=== PATIENT | female | born 2005 | race Asian ===

== ENCOUNTER 2024-07-06 14:13 | Outpatient (AMB) | payer OTHER, SELFPAY ==
--- NOTE | 2024-07-06 14:16 | MHC.PC.OV ---
Vital Signs 07/06/24 14:21 Height 5 ft 1.61 in Weight 142 lb 4 oz BMI 26.3 BP 100/62 Blood Pressure Location Rt brachial Position Sitting Respiration 12 Pulse 110 H Pulse Source Pulse Oximeter Temp 98.7 F Temp Source Oral Pulse Oximetry (%) 100 Oxygen Delivery Method Room Air Intake Visit Reasons: est care Intake Note: New patient visit Driver Courier Required: No Allergies No Known Allergies Allergy (Verified 07/06/24 14:16) Tobacco use date assessed: 07/06/24 Dental Screening Dental Screen Date: 07/06/24 Did you have a dental visit in the last 12 months?: No Did you have a dental problem in the last 6 months where you did not have access to dental care?: No Was dental information given to patient?: Patient has dentist HPI est care HPI Details Patient is a 19-year-old female who presents today to establish care and for a physical exam. She denies any significant past medical history. She says that she needed this appointment because she needs titers for school and she needs a physical exam. She got accepted into a [employer] program this summer. She has to have her titers and physical and by 07/13/2024. She states that she has been overall in good health. She tries to eat healthy and remain physically active. Denies any chest pain, shortness on breath, dizziness or weakness. She says that she feels strong. No history of asthma, heart disease, diabetes, anxiety or depression. She goes to school right now full-time at [employer] in [facility] in the premed program. Does not yet follow with gynecology has she is not sexually active. Fam hx: mother has t2dm, htn and father has t2dm, brother is disabled [facility] Family History (Updated 07/06/24 @ 14:32 by Carito Rivero CMA) Mother HTN (hypertension) High cholesterol Diabetes Father Diabetes Social History Housing: House Patient Tobacco Use Status: Never used Tobacco e-Cigarette/Vaping Use: Never Used Second Hand Smoke Exposure: No service: No Current occupational status: employed and student Current occupational exposures/hazards: No Cognitive needs: No Hearing needs: No Vision needs: No Questionnaire PHQ-9 Over the last 2 weeks, how often have you been bothered by any of the following problems? 1. Little interest or pleasure in doing things: not at all 2. Feeling down, depressed, or hopeless: not at all 3. Trouble falling or staying asleep, or sleeping too much: not at all 4. Feeling tired or having little energy: not at all 5. Poor appetite or overeating: not at all 6. Feeling bad about yourself - or that you are a failure or have let yourself or your family down: not at all 7. Trouble concentrating on things, such as reading the newspaper or watching television: not at all 8. Moving or speaking so slowly that other people could have noticed. Or the opposite - being so fidgety or restless that you have been moving around a lot more than usual: not at all 9. Thoughts that you would be better off or of hurting yourself in some way: not at all Total score: 0 Depression Screening Interpretation: Negative Depression Screening Done: Yes 77294 - PHQ-9 Billing: Yes Source: Developed by Drs. Joe Girard, Yuliana Avilez, Yann Sutton and colleagues, with an educational chen from [employer]. Thrive Questionnaire Date Thrive assessed: 07/06/24 I am a: Patient What is your living situation today?: I have a steady place to live Within the past 12 months, did the food you bought not last and you didn't have the money to get more?: Never true Within the past 12 months, did you worry whether your food would run out before you got money to buy more?: Never true Do you have trouble paying for medicines?: I choose not to answer this question Do you have trouble getting transportation to medical appointments?: No Do you have trouble paying your heating and electricity bill?: I choose not to answer this question Do you have trouble taking care of your child, family member or friend?: I choose not to answer this question Do you have trouble with day-to-day activities such as bathing, preparing meals, shopping, managing finances, etc.?: No Are you currently unemployed and looking for a job?: I choose not to answer this question Are you interested in more education?: Yes Please select the resources that you would like help with: None Currently or been in a relationship where the following occur: No concerns reported THRIVE Score: 0 AUDIT C Alcohol Use Questionnaire (AUDIT-C) 1. How often do you have a drink containing alcohol?: Never 3. How often do you have six or more drinks on one occasion?: Never Total Score: 0 SOWMYA-7 AMB Questionnaire SOWMYA-7 Date SOWMYA - 7 assessed: 07/06/24 Feeling nervous, anxious, or on edge: 0 = Not at all Not being able to stop or control worryin = Not at all Worrying too much about different things: 0 = Not at all Trouble relaxin = Several days Being so restless that it is hard to sit still: 0 = Not at all Becoming easily annoyed or irritable: 0 = Not at all Feeling afraid as if something awful might happen: 0 = Not at all Total SOWMYA-7 score (0-4 normal; 5-9 mild; 10-14 moderate; 15-21 severe): 1 Source: Developed by Drs. Joe Girard, Yuliana Avilez, Yann Sutton and colleagues, with an educational chen from [employer]. SOWMYA-7 Assessment Billing SOWMYA-7 Assessment Tool: SOWMYA-7 Assessment 54514 Physical exam (Primary Care) Vital Signs: Last Vital Signs Temp 98.7 F 07/06/24 14:21 Pulse 110 H 07/06/24 14:21 Resp 12 07/06/24 14:21 BP 100/62 07/06/24 14:21 Pulse Ox 100 07/06/24 14:21 Oxygen Delivery Method Room Air 07/06/24 14:21 BMI result Body Mass Index 26.3 Tobacco/Smoking Status: Tobacco use Status Tobacco use date assessed 07/06/24 07/06/24 14:19 Patient Tobacco Use Status Never used Tobacco 07/06/24 14:19 e-Cigarette/Vaping Use Never Used 07/06/24 14:19 PHQ-9: PHQ-9 Score PHQ-9: Total score 0 07/06/24 14:19 Depression Screening Interpretation: Negative Thrive Assessment: Date of Thrive Assessment Date Thrive assessed 07/06/24 07/06/24 14:19 Currently or been in a relationship where the following occur: No concerns reported Const Orientation/consciousness: patient oriented x3 HENMT Ears: hearing grossly normal bilaterally and TM's normal bilaterally General nose exam: No nasal polyps present Face and sinus: Yes sinuses nontender Mouth: Normal oral and palatal mucosa present Eyes Pupils: Equal, round and reactive pupils present EOM: EOMs intact bilaterally Neck Neck: Yes full ROM and Yes no lymphadenopathy Thyroid: Thyroid normal Chest Chest palpation & inspection: normal inspection of the chest Resp Auscultation: clear to auscultation bilaterally Cardio Rate: regular rate Rhythm: regular rhythm Heart sounds: S1 normal heart sound present and S2 normal heart sound present Peripheral pulses: Peripheral pulses 2+ throughout GI Other: Soft, nontender Auscultation: normal bowel sounds Rectal Exam - Female: deferred General: Yes no CVA tenderness Back/Spine/Pelvis Other: Nontender Back: no CVA tenderness Skin General skin exam: no rashes or lesions noted Neuro General: patient oriented x3, gait normal, CN's II-XI intact bilaterally and deep tendon reflexes 2+ bilaterally Cranial nerves: Yes Equal, round and reactive pupils present Motor exam (neuro): 5/5 motor strength present throughout Sensory Exam: double simultaneous stimulation for sensation normal Coordination: [id number] test normal and Romberg test negative Extrem General: Yes normal to inspection and Yes full ROM Psych Affect: normal affect Attitude: cooperative Thought process: Normal thought process present Thought content: Normal thought content present Insight: Good insight present (Psych) Judgement: Good judgement present (Psych) Coding Level of Care Code New Pt Prev Care 18-39yr(93122 Diagnoses Encounter for routine history and physical examination Z00.00 Additional Codes SOWMYA-7 Assessment Billing - SOWMYA-7 Assessment Tool: SOWMYA-7 Assessment 63085 ([id number]) PHQ-9 - 87565 - PHQ-9 Billing: Yes ([id number]) Assessment & Plan Assessment & Plan (1) Encounter for routine history and physical examination: Code(s): Z.00 - Encounter for general adult medical examination without abnormal findings Plan: Health maintenance reviewed Labs ordered Immunizations ordered Advised to continue with healthy lifestyle Advised routine eye and dental care as well Encouraged her to be physically active. Orders: Orders Comprehensive Beatty. Panel Fast Today Z00.00 - Encounter for general adult medical examination without abnormal findings, Z28.39 - Other underimmunization status Lipid Panel Today Z00.00 - Encounter for general adult medical examination without abnormal findings, Z28.39 - Other underimmunization status TSH reflex Free T4 Today Z00.00 - Encounter for general adult medical examination without abnormal findings, Z28.39 - Other underimmunization status Varicella IgG Antibody Today Z00.00 - Encounter for general adult medical examination without abnormal findings, Z28.39 - Other underimmunization status MMR IgG Measles Mumps Rubella Today Z00.00 - Encounter for general adult medical examination without abnormal findings, Z28.39 - Other underimmunization status Hepatitis B Surface Antibody Today Z00.00 - Encounter for general adult medical examination without abnormal findings, Z28.39 - Other underimmunization status Complete Blood Count Auto Diff Today Z00.00 - Encounter for general adult medical examination without abnormal findings, Z28.39 - Other underimmunization status T Spot TB Today Z00.00 - Encounter for general adult medical examination without abnormal findings, Z11.1 - Encounter for screening for respiratory tuberculosis, Z28.39 - Other underimmunization status
[2024-07-06 14:21] VITALS: BP 100/62; PULSE 110; RESP 12; TEMP 37.1; O2SAT 100; BMI 26.3
--- OUTSIDE RECORDS SUMMARY | 2024-07-06 15:06 | XMS_ITS | Clinical Summary ---
Author Organization [facility] Address [address] [place] [address] Phone Care Team Providers Care Operations Agent Name Role Phone Unavailable Primary Care Provider Unavailabl e Encounters Date Type Department Care Team Description 06/29/2024 Telephone [facility], [facility] [address] [place] [address] Barbara Ng MD Request for Medical Records from Last 3 Months Immunizations Immunization Administration Dates Next Due DTaP 06/26/2011, 0,10/02/2008,08/11,07/16/2006 HPV Vaccine 9 Valent 02/24/2021 HPV, Quadrivalent 09/22/2017 Hep A, ped/adol 03/13/2016,11/07/2014 Hep B, ped/adol 08/12/2007,10/16/2006,07/16/2006 HiB 08/12/2007,07/16/2006 IPV 08/06/2009, 9,08/12/2007,07/16 Influenza 02/01/2013 Influenza Whole 11/07/2014 Influenza, injectable, quadr ivalent, preservative free 02/24/2021 Influenza, injectable, triva lent, preservative free 01/22/2016 MMR 11/07/2008,07/16/2006 Meningococcal B Bexsero 07/30/2022 Meningococcal Conjugate 02/24/2021,09/22/2017, PPD Test 05/29/2014,12/27/2012 Pneumococcal Conjugate 08/12/2007 Tdap 03/13/2016 Varicella 06/26/2011,07/16/2006 Social History Tobacco Use Types Packs/Day Years Used Date Smoking Tobacco: Never Tobacco Cessation:Counseling Given: Not Answered Alcohol Use Standard Drinks/Week Comments Never 0 (1 standard drink = 0.6 oz pur e alcohol) Comments Unknown Sex and Gender Information Value Date Recorded Sex Assigned at Not on file Legal Sex Female 1:22 PM EDT Gender Identity Not on file Sexual Orientation Not on file Last Filed Vital Signs Vital Sign Reading Time Taken Comments Blood Pressure 117/78 07/30/2022 9:37 AM EDT Pulse 93 07/30/2022 9:37 AM EDT Temperature 36.6 ??C (97.9 ??F) 02/23/2019 12:[address] Respiratory Rate 20 02/24/2021 12:00 AM EST Oxygen Saturation 100% 07/30/2022 9:37 AM EDT Inhaled Oxygen Concentration - - Weight 65.8 kg (145 lb 1.4 oz) 07/30/2022 9:37 A M EDT Height 154 cm (5' 0.63 ) 07/30/2022 9:37 AM EDT Body Mass Index 27.75 07/30/2022 9:37 AM EDT Plan of Treatment Health Maintenance Due Date Last Done Comments Men B Vaccine (2 of 2 - Bexs ero SCDM 2-dose series) 01/29/2023 07/30/2022 Influenza Vaccines (#1) 2023 02/25/20, 02/05/2020, 01/22/2016, Additional history exists COVID-19 Vaccine (3 - 2023-2 5 season) 2023 04/18/2021, 03/28/2021 DTaP,Tdap,and Td Vaccines (6 - Td or Tdap) 03/13/2026 03/13/2016, 06/26/2011, 08/06/2009, Additional history exists HIB Vaccines Completed 08/12/2007, 07/16/2006 Hepatitis B Vaccines Completed 08/12/2007, 10/16/2006, 07/16/2006 Pneumococcal Vaccine Completed 08/12/2007 MMR Vaccines Completed 11/07/2008, 07/16/2006 IPV Vaccines Completed 08/06/2009, 08/0 05/2008, 08/12/2007, Additional history exists Varicella Vaccines Completed 06/26/2011, 07/16/2006 Hepatitis A Vaccines Completed 03/13/2016, 11/08/19 15 HPV Vaccines Completed 02/24/2021, 09/22/2017 Meningococcal Vaccine Completed 02/24/2021 , 09/22/2017, 06/04/2009 Procedures * Due to [place] [employer] law, this organization might not be sharing sensitive test results. Procedure Name Priority Date/Time Associated Diagnosis Comments CHLAMYDIA TRACHOMATIS, AMPLIFIED Routine 07/30/2022 10:30 AM EDT Encounter for screening examination for sexually transmitted disease from Last 3 Months or Most Recently Relevant to Health Maintenance Results * Due to [place] [employer] law, this organization might not be sharing sensitive test results. * Chlamydia trachomatis, Amplified (07/30/2022 10:30 AM EDT) Chlamydia trachomatis RNA, TMA NOT DETECTED NOT DETECTED [employer] Comment [employer] Comment: The analytical performance characteristics of this assay, when used to test SurePath(TM) specimens have been determined by [employer]. The modifications have not been cleared or approved by the FDA. This assay has been validated pursuant to the CLIA regulations and is used for clinical purposes. For additional information, please refer to https://education.[employer]/faq/CMI039 (This link is being provided for information/ educational purposes only.) Urine (Urine) 07/30/2022 10: 30 AM EDT 07/31/2022 4:31 AM EDT Narrative Resulting Agency Comment Performing Organization Information: ?Site ID: [id number] ?Name: [facility] ?Address: [address] [place] [id number] ?Director: Yao Mills us Rosaline Burnette NP LAB BLOOD ORDERABLES Final Resu lt L[place] from Last 3 Months or Most Recently Relevant to Health Maintenance
--- OUTSIDE RECORDS SUMMARY | 2024-07-06 15:06 | XMS_ITS | Encounter Summary ---
Author Organization [facility] Address [address] [place], [place] [phone] Phone Care Team Providers Care Lap Runner Name Role Phone Barbara Ng MD Primary Care Provider Encounter Details Date Type Department Care Team (Late st Contact Info) Description 06/29/2021 Conversion Encounter [facility], [facility] [address] [place] [address] Barbara Ng MD [address] [place] [address] Social History Tobacco Use Types Packs/Day Years Used Date Smoking Tobacco: Never Assessed Comments Unknown Sex and Gender Information Value Date Recorded Sex Assigned at Not on file Legal Sex Female 1:22 PM EDT Gender Identity Not on file Sexual Orientation Not on file documented as of this encounter Plan of Treatment Not on file documented as of this encounter Visit Diagnoses Not on filedocumented in this encounter Care Teams Lap Runner Relationship Specialty Start Date End Date Barbara Ng MD [address] [place] [address] PCP - General 02/24/21 04/13/24 documented as of this encounter
== END 2024-07-06 14:45 | disposition home or self-care (01) ==
LOC: HO.HMCFM 14:14
PROVIDERS: PCP Physician Assistant; Visit Provider Physician Assistant
DX: Z00.00 Encounter for general adult medical examination without abnormal findings (principal)

== ENCOUNTER → 2024-07-06 14:13 | Outpatient (BNVA) | payer OTHER, SELFPAY | PROVIDERS: PCP Physician Assistant; Visit Provider Physician Assistant | DX: Z13.89 Encounter for screening for other disorder (principal) | CPT/HCPCS: 96127; 99385 ==

== ENCOUNTER 2024-07-06 14:48 | Outpatient (REF) | payer OTHER, SELFPAY ==
--- OUTSIDE RECORDS SUMMARY | 2024-07-06 15:27 | XMS_ITS | Clinical Summary ---
Author Organization [facility] Address [address] [place] [phone] Phone Care Team Providers Care Web Services Professional Name Role Phone Unavailable Primary Care Provider Unavailabl e Encounters Date Type Department Care Team Description 06/29/2024 Telephone [facility], [facility] [address] [place] [address] Barbara Ng MD Request for [...] , 09/22/2017, 06/04/2009 Procedures * Due to [place] [employer] law, this organization might not be sharing sensitive test results. Procedure Name Priority Date/Time Associated Diagnosis Comments CHLAMYDIA TRACHOMATIS, AMPLIFIED Routine 07/30/2022 10:30 AM EDT Encounter for screening examination for sexually transmitted disease from Last 3 Months or Most Recently Relevant to Health Maintenance Results * Due to [place] [employer] law, this organization might not be sharing sensitive test results. * Chlamydia trachomatis, Amplified (07/30/2022 10:30 AM EDT) Chlamydia trachomatis RNA, TMA NOT DETECTED NOT DETECTED [employer] Comment [employer] Comment: The analytical performance characteristics of this assay, when used to test SurePath(TM) specimens have been determined by [employer]. The modifications have not been cleared or approved by the FDA. This assay has been validated pursuant to the CLIA regulations and is used for clinical purposes. For additional information, please refer to https://education.[employer]/faq/YDQ239 (This link is being provided for information/ educational purposes only.) Urine (Urine) 07/30/2022 10: 30 AM EDT 07/31/2022 4:31 AM EDT Narrative Resulting Agency Comment Performing Organization Information: ?Site ID: [id number] ?Name: [facility] ?Address: [address] [place] [id number] ?Director: Yao Mills us Rosaline Burnette NP LAB BLOOD ORDERABLES Final Resu lt Wom[place] from Last 3 Months or Most Recently Relevant to Health Maintenance
--- OUTSIDE RECORDS SUMMARY | 2024-07-06 15:27 | XMS_ITS | Encounter Summary ---
Author Organization [facility] Address [address] [place], [place] [phone] Phone Care Team Providers Care Business Unit Controller Name Role Phone Barbara Ng MD Primary Care Provider Encounter Details Date Type Department Care Team (Late st Contact Info) Description 06/29/2021 Conversion Encounter [facility], [facility] [address] [place] [address] Barbara Ng MD [address] [place] [address] Social History Tobacco Use Types Packs/Day Years [...] on filedocumented in this encounter Care Teams Business Unit Controller Relationship Specialty Start Date End Date Barbara Ng MD [address] [place] [address] PCP - General 02/24/21 04/13/24 documented as of this encounter
[2024-07-06 17:38] LABS: MANUAL DIFF FLAG NO
[2024-07-06 17:56] LABS: Basophils Percent Auto 0.4 % (0-2); Eosinophils Absolute Auto 0.1 X10*3/uL (0.0-0.4); Eosinophils Percent Auto 0.9 % (0-4); Hematocrit 32.5 % (37.0-47.0); Imm Gran Abs Auto 0.02 X10*3/uL (0.00-0.03); Imm Gran Pct Auto 0.3 % (0.0-0.4); Lymphocytes Absolute Auto 2.6 X10*3/uL (1.2-4.9); Lymphocytes Percent Auto 34.5 % (20-40); Mean Corpuscular HGB Conc 30.8 g/dl (31.0-35.0); Mean Corpuscular Hemoglobin 23.8 pg (27.0-33.0); Mean Corpuscular Volume 77.2 fL (80.0-98.0); Mean Platelet Volume 10.9 fL (9.4-12.3); Monocytes Absolute Auto 0.6 X10*3/uL (0.1-1.2); Monocytes Percent Auto 8.1 % (2-11); Neutrophils Absolute Auto 4.2 x10*3/uL (2.0-8.3); Neutrophils Percent Auto 55.8 % (45-73); Platelet Count 366 X10*3/uL (160-400); Red Blood Count 4.21 X10*6/uL (4.20-5.50); Red Cell Distribution Width 14.4 % (11.0-16.0); White Blood Count 7.4 X10*3/uL (4.8-10.8)
[2024-07-06 18:21] LABS: TSH reflex Free T4 1.28 uIU/mL (0.32-4.0)
[2024-07-07 07:57] LABS: HBS Num1 373.48 mIU/mL (0-7.99); ~Hepatitis B Surface Antibody REACTIVE (Nonreactive)
[2024-07-07 18:28] LABS: Rubella IgG Antibody 1.53 Index; Rubeola IgG (Measles) <13.50 AU/mL
[2024-07-08 20:38] LABS: TS Negative Control Passed; TS Panel A 0; TS Panel B 0; TS Positive Control Passed; TSpotTB Negative (Negative)
[2024-07-10 21:49] LABS: Varicella IgG Antibody <1.00 S/CO
== END 2024-07-06 14:49 | disposition home or self-care (01) ==
LOC: HO.WFDLDS 14:48
PROVIDERS: Visit Provider Physician Assistant
DX: Z00.00 Encounter for general adult medical examination without abnormal findings (principal); Z11.1 Encounter for screening for respiratory tuberculosis; Z28.39 Other underimmunization status
CPT/HCPCS: 36415; 84443; 85025; 86481; 86706; 86735; 86762; 86765; 86787

== ENCOUNTER 2024-07-17 09:14 | Outpatient (REF) | payer OTHER, SELFPAY ==
--- OUTSIDE RECORDS SUMMARY | 2024-07-17 09:25 | XMS_ITS | Clinical Summary ---
Author Organization [facility] Address [address] [place] [phone] Phone Care Team Providers Care Mincing Machine Operator Name Role Phone Unavailable Primary Care Provider Unavailabl e Encounters Date Type Department Care Team Description 06/29/2024 Telephone [facility], [facility] [address] [place] [address] Barbara Ng MD Request for [...] , 09/22/2017, 06/04/2009 Procedures * Due to [place] [employer] law, this organization might not be sharing sensitive test results. Procedure Name Priority Date/Time Associated Diagnosis Comments CHLAMYDIA TRACHOMATIS, AMPLIFIED Routine 07/30/2022 10:30 AM EDT Encounter for screening examination for sexually transmitted disease from Last 3 Months or Most Recently Relevant to Health Maintenance Results * Due to [place] [employer] law, this organization might not be sharing sensitive test results. * Chlamydia trachomatis, Amplified (07/30/2022 10:30 AM EDT) Chlamydia trachomatis RNA, TMA NOT DETECTED NOT DETECTED [employer] Comment [employer] Comment: The analytical performance characteristics of this assay, when used to test SurePath(TM) specimens have been determined by [employer] The modifications have not been cleared or approved by the FDA. This assay has been validated pursuant to the CLIA regulations and is used for clinical purposes. For additional information, please refer to https://education.[employer]/faq/OYW584 (This link is being provided for information/ educational purposes only.) Urine (Urine) 07/30/2022 10: 30 AM EDT 07/31/2022 4:31 AM EDT Narrative Resulting Agency Comment Performing Organization Information: ?Site ID: [id number] ?Name: [facility] ?Address: [address] [place] [id number] ?Director: Yao Mills us Rosaline Burnette NP LAB BLOOD ORDERABLES Final Resu lt [place] from Last 3 Months or Most Recently Relevant to Health Maintenance
--- OUTSIDE RECORDS SUMMARY | 2024-07-17 09:25 | XMS_ITS | Encounter Summary ---
Author Organization [facility] Address [address] [place], [place] [phone] Phone Care Team Providers Care Automotive Generator Repairer Name Role Phone Barbara Ng MD Primary Care Provider Encounter Details Date Type Department Care Team (Late st Contact Info) Description 06/29/2021 Conversion Encounter [facility], [facility] [address] [place] [address] Barbara Ng MD [address] [place] [address] Social History Tobacco Use Types Packs/Day Years [...] on filedocumented in this encounter Care Teams Automotive Generator Repairer Relationship Specialty Start Date End Date Barbara Ng MD [address] [place] [address] PCP - General 02/24/21 04/13/24 documented as of this encounter
[2024-07-17 11:57] LABS: Vitamin B12 315 pg/mL (200-900)
[2024-07-17 12:17] LABS: Ferritin 3 ng/mL (10-122)
[2024-07-17 12:18] LABS: Anion Gap 10 (12-20)
[2024-07-17 12:23] LABS: Alanine Aminotransferase 13 U/L (0-31); Albumin Level 4.2 g/dL (3.5-5.0); Alkaline Phosphatase 56 U/L (39-117); Aspartate Amino Transferase 24 U/L (5-31); Bilirubin Total 0.6 mg/dL (0.0-1.0); Blood Urea Nitrogen 19 mg/dL (9-16); Calcium 9.1 mg/dL (8.4-10.2); Carbon Dioxide 24 mmol/L (22-29); Chloride 109 mmol/L (96-108); Cholesterol 148 mg/dL (<200); Estimated Glomerular Filt Rate > 60; Glucose Fasting 90 mg/dL (60-99); HDL Cholesterol 52 mg/dL (>40); Iron 23 mcg/dL (30-160); LDL Cholesterol Calculated 87 mg/dL (<100); Percent Iron Saturation 6 % (15-50); Potassium 3.8 mmol/L (3.3-5.1); Sodium 139 mmol/L (135-145); Total Iron Binding Capacity 415 mcg/dL (228-428); Total Protein 7.4 g/dL (6.5-8.0); Triglycerides 48 mg/dL (<150); Unsaturated Iron Binding 392 ug/dL
== END 2024-07-17 09:15 | disposition home or self-care (01) ==
LOC: HO.WFDLDS 09:14
PROVIDERS: Visit Provider Physician Assistant
DX: Z00.00 Encounter for general adult medical examination without abnormal findings (principal); Z28.39 Other underimmunization status; D64.9 Anemia, unspecified
CPT/HCPCS: 36415; 80053; 80061; 82607; 82728; 82746; 83540

== ENCOUNTER → 2024-08-16 14:51 | Outpatient (BNVA) | payer OTHER, SELFPAY | PROVIDERS: PCP Physician Assistant; Visit Provider Physician Assistant | DX: G44.52 New daily persistent headache (NDPH) (principal); D64.9 Anemia, unspecified | CPT/HCPCS: 99212 ==

== ENCOUNTER → 2024-08-16 14:51 | Outpatient (AMB) | payer OTHER, SELFPAY ==
--- NOTE | 2024-08-16 15:04 | A.OFFPC_ITS ---
Vital Signs 08/16/24 15:05 Height 5 ft 1.61 in Weight 146 lb BMI 27.0 BP 108/66 Blood Pressure Location Rt brachial Position Sitting Respiration 12 Pulse 108 H Pulse Source Pulse Oximeter Temp 99 F Temp Source Oral Pulse Oximetry (%) 100 Oxygen Delivery Method Room Air Intake Visit Reasons: labs Results Intake Note: Lab results Accompanied by: Mother Allergies No Known Allergies Allergy (Verified 08/16/24 15:05) Medication List - Last Reconciled 08/16/24 by Jennifer Johnson PA-C ferrous sulfate 325 mg PO DAILY Tobacco use date assessed: 08/16/24 Dental Screening Dental Screen Date: 07/06/24 HPI labs Results HPI Details Patient is a 19-year-old female who presents today For a follow up. Heme: She was noted to have an iron-deficiency anemia. She states that she is taking the iron but it is causing some GI upset. She does have regular periods lasting about a week-long with 3-4 days of heavier bleeding. Neuro: complains today of headaches. She states that she gets them almost every day. She has Complained of this in the past and thought it was possibly related to computer screens and stress but now it is summer and she is not in school and she is still experiencing the headaches. She says that she could be better with her hydration but overall tries to eat healthy and hydrate. She denies any change in caffeine intake. The headaches are in the front of her head and it feels like it is on both sides. She denies any nausea, vomiting, weakness or paresthesias. Headaches seem to start mid day and go on throughout the day. They are resolved with OTC analgesics but she tries not to take this every day. She goes to school right now full-time at [employer] in his in the premed program. Does not yet follow with gynecology has she is not sexually active. Fam hx: mother has t2dm, htn and father has t2dm, brother is disabled [facility] Family History (Updated 07/06/24 @ 14:32 by Carito Rivero CMA) Mother HTN (hypertension) High cholesterol Diabetes Father Diabetes Social History Housing: House Patient Tobacco Use Status: Never used Tobacco e-Cigarette/Vaping Use: Never Used Second Hand Smoke Exposure: No service: No Current occupational status: employed and student Current occupational exposures/hazards: No Cognitive needs: No Hearing needs: No Vision needs: No Questionnaire Thrive Questionnaire Date Thrive assessed: 07/06/24 I am a: Patient What is your living situation today?: I have a steady place to live Within the past 12 months, did the food you bought not last and you didn't have the money to get more?: Never true Within the past 12 months, did you worry whether your food would run out before you got money to buy more?: Never true Do you have trouble paying for medicines?: I choose not to answer this question Do you have trouble getting transportation to medical appointments?: No Do you have trouble paying your heating and electricity bill?: I choose not to answer this question Do you have trouble taking care of your child, family member or friend?: I choose not to answer this question Do you have trouble with day-to-day activities such as bathing, preparing meals, shopping, managing finances, etc.?: No Are you currently unemployed and looking for a job?: I choose not to answer this question Are you interested in more education?: Yes Please select the resources that you would like help with: None Currently or been in a relationship where the following occur: No concerns reported THRIVE Score: 0 AUDIT C Alcohol Use Questionnaire (AUDIT-C) 1. How often do you have a drink containing alcohol?: Never 3. How often do you have six or more drinks on one occasion?: Never Total Score: 0 SOWMYA-7 AMB Questionnaire SOWMYA-7 Date SOWMYA - 7 assessed: 07/06/24 Source: Developed by Drs. Joe Girard, Yuliana Avilez, Yann Sutton and colleagues, with an educational chen from [employer]. Physical exam (Primary Care) Vital Signs: Last Vital Signs Temp 99 F 08/16/24 15:05 Pulse 108 H 08/16/24 15:05 Resp 12 08/16/24 15:05 BP 108/66 08/16/24 15:05 Pulse Ox 100 08/16/24 15:05 Oxygen Delivery Method Room Air 08/16/24 15:05 BMI result Body Mass Index 27.0 Tobacco/Smoking Status: Tobacco use Status Tobacco use date assessed 08/16/24 08/16/24 15:09 Patient Tobacco Use Status Never used Tobacco 08/16/24 15:09 e-Cigarette/Vaping Use Never Used 08/16/24 15:09 Thrive Assessment: Date of Thrive Assessment Date Thrive assessed 07/06/24 08/16/24 15:09 Currently or been in a relationship where the following occur: No concerns reported Const Orientation/consciousness: patient oriented x3 HENMT Ears: hearing grossly normal bilaterally Neck Thyroid: Thyroid normal Lymphatic: no lymphadenopathy noted Resp Auscultation: clear to auscultation bilaterally Cardio Rate: regular rate Rhythm: regular rhythm Heart sounds: S1 normal heart sound present and S2 normal heart sound present Skin General skin exam: no rashes or lesions noted Neuro General: patient oriented x3, gait normal, no focal motor deficits, CN's II-XI intact bilaterally and deep tendon reflexes 2+ bilaterally Motor exam (neuro): 5/5 motor strength present throughout Coordination: [id number] test normal and Romberg test negative Extrem General: Yes normal to inspection Coding Level of Care Code Est Pt Level 4 (17642) Complex EM visit Add On G2211 Diagnoses Anemia D64.9 New daily persistent headache G44.52 Assessment & Plan Assessment & Plan (1) Anemia: Code(s): D64.9 - Anemia, unspecified Category: Medical Plan: continue with supplement. We will recheck labs one-month follow up. If unable to tolerate the supplement discuss possible consult. (2) New daily persistent headache: Code(s): G44.52 - New daily persistent headache (NDPH) Category: Medical Plan: MRI ordered. Advised patient to follow with Ophthalmology. Orders: Orders IRON PROFILE 08/16/24 D64.9 - Anemia, unspecified MR head/brain wo con 08/16/24 G44.52 - New daily persistent headache (NDPH) Complete Blood Count Auto Diff 08/16/24 D64.9 - Anemia, unspecified Ferritin 08/16/24 D64.9 - Anemia, unspecified Vitamin B12 and Folate 08/16/24 D64.9 - Anemia, unspecified
[2024-08-16 15:05] VITALS: BP 108/66; PULSE 108; RESP 12; TEMP 37.2; O2SAT 100; BMI 27.0
--- OUTSIDE RECORDS SUMMARY | 2024-08-16 17:07 | XMS_ITS | Clinical Summary ---
Author Organization [facility] Address [address] [place] [phone] Phone Care Team Providers Care Litigation Claim Representative Name Role Phone Unavailable Primary Care Provider Unavailabl e Encounters Date Type Department Care Team Description 06/29/2024 Telephone [facility], [facility] [address] [place] [address] Barbara Ng MD Request for [...] 93 07/30/2022 9:37 AM EDT Temperature 36.6 C (97.9 F) 02/23/2019 12:00 AM EST Respiratory Rate 20 02/24/2021 12:00 AM EST [...] , 09/22/2017, 06/04/2009 Procedures * Due to [place] eduPad law, this organization might not be sharing sensitive test results. Procedure Name Priority Date/Time Associated Diagnosis Comments CHLAMYDIA TRACHOMATIS, AMPLIFIED Routine 07/30/2022 10:30 AM EDT Encounter for screening examination for sexually transmitted disease from Last 3 Months or Most Recently Relevant to Health Maintenance Results * Due to [place] eduPad law, this organization might not be sharing sensitive test results. * Chlamydia trachomatis, Amplified (07/30/2022 10:30 AM EDT) Chlamydia trachomatis RNA, TMA NOT DETECTED NOT DETECTED [employer] Comment [employer] Comment: The analytical performance characteristics of this assay, when used to test SurePath(TM) specimens have been determined by [employer]. The modifications have not been cleared or approved by the FDA. This assay has been validated pursuant to the CLIA regulations and is used for clinical purposes. For additional information, please refer to https://education.[employer]/faq/FJT865 (This link is being provided for information/ educational purposes only.) Urine (Urine) 07/30/2022 10: 30 AM EDT 07/31/2022 4:31 AM EDT Narrative Resulting Agency Comment Performing Organization Information: Site ID: [id number] Name: [employer] [place] [facility] Address: [address] [place] [id number] Director: Yao Mills us Rosaline Burnette NP LAB MICROBIOLOGY - GENERAL ANSHU HAGAN Final Result [employer] from Last 3 Months or Most Recently Relevant to Health Maintenance
== END ==
LOC: HO.HMCFM 14:51
PROVIDERS: PCP Physician Assistant; Visit Provider Physician Assistant
DX: D64.9 Anemia, unspecified (principal); G44.52 New daily persistent headache (NDPH)

== ENCOUNTER → 2024-09-15 18:43 | Outpatient (BNV) | payer OTHER, SELFPAY | PROVIDERS: PCP Physician Assistant; Visit Provider Radiology Diagnostic Radiology | DX: G44.52 New daily persistent headache (NDPH) (principal) | CPT/HCPCS: 70551 ==

== ENCOUNTER 2024-09-15 19:17 | Outpatient (REF) | payer OTHER, SELFPAY ==
--- NOTE | ~2024-09-15 | MR_ITS ---
EXAMINATION: MR BRAIN WITHOUT CONTRAST CLINICAL INFORMATION: New daily persistent headache. COMPARISON: None available. TECHNIQUE: MRI of the brain was obtained using routine sequences without contrast. Examination performed on a 1.5 Nury Siemens high-field unit. FINDINGS: There is no diffusion restriction. There is no intracranial hemorrhage, acute infarction, mass effect, or edema. Ventricles, sulci, and cisterns are normal in size and configuration for patient age. No shift of midline. No abnormal hemosiderin deposition is identified. There are mildly symmetric confluent foci of white matter T2 hyperintensity in the periventricular white matter, most notable abutting the bilateral frontal and bilateral occipital horns. These have a nonspecific appearance. There is involvement of the pericallosal white matter abutting the frontal horns bilaterally. No definite callosal lesion, or callosal septal hyperintensity, and no definite hypointense T1 lesions identified. These findings are nonspecific, although early demyelinating etiology could be considered. Midline structures appear normally formed. No callosal atrophy. The pituitary gland appears normal. Posterior fossa structures appear normal. Cerebellar tonsils are appropriately located. Major flow voids are preserved within the skull base. The globes and orbital contents demonstrate no abnormalities. Paranasal sinuses are clear bilaterally. Nasal septum is midline without spur. The mastoids and tympanic cavities are normally aerated. Extracranial soft tissues demonstrate no abnormalities. There is diffusely T1 hypointense bone marrow signal identified. No focal suspicious bone marrow signal abnormalities. Atlantoaxial joint is normal. MR/MR head/brain wo con IMPRESSION: 1. No evidence of intracranial hemorrhage, acute infarction, mass effect, or edema. 2. Symmetric foci of mildly confluent T2 hyperintensity in the periventricular white matter abutting the frontal horns and occipital horns as detailed. These have a nonspecific appearance although early demyelinating etiologies could be considered. Other etiologies are not excluded. See above. 3. Diffusely hypointense bone marrow signal on T1-weighted imaging, nonspecific but can be seen in smokers and with hematopoietic/active bone marrow. 4. Remainder of the examination is normal. Electronically signed by: Ankit Howell MD 09/18/2024 08:53 AM EDT
== END 2024-09-15 19:18 | disposition home or self-care (01) ==
LOC: HO.MRI 19:17
PROVIDERS: PCP Physician Assistant; Visit Provider Physician Assistant
DX: G44.52 New daily persistent headache (NDPH) (principal)
CPT/HCPCS: 70551

== ENCOUNTER 2024-09-25 10:37 | Outpatient (REF) | payer OTHER, SELFPAY ==
--- OUTSIDE RECORDS SUMMARY | 2024-09-25 11:51 | XMS_ITS | Clinical Summary ---
Author Organization [facility] Address [address] [place] [phone] Phone Care Team Providers Care Digital Forensic Analyst Name Role Phone Unavailable Primary Care Provider Unavailabl e Encounters Date Type Department Care Team Description 06/29/2024 Telephone [facility], [facility] [address] [place] [address] Barbara Ng MD Request for [...] Bexs ero SCDM 2-dose series) 01/29/2023 07/30/2022 COVID-19 Vaccine (3 - 2023-2 5 season) 2023 04/18/2021, 03/28/2021 Influenza Vaccines (#1) 2024 02/25/20 21, 02/05/2020, 01/22/2016, Additional history exists DTaP,Tdap,and Td Vaccines (6 - Td or [...] , 09/22/2017, 06/04/2009 Procedures * Due to [place] ValenTx law, this organization might not be sharing sensitive test results. Procedure Name Priority Date/Time Associated Diagnosis Comments CHLAMYDIA TRACHOMATIS, AMPLIFIED Routine 07/30/2022 10:30 AM EDT Encounter for screening examination for sexually transmitted disease from Last 3 Months or Most Recently Relevant to Health Maintenance Results * Due to [place] ValenTx law, this organization might not be sharing sensitive test results. * Chlamydia trachomatis, Amplified (07/30/2022 10:30 AM EDT) Chlamydia trachomatis RNA, TMA NOT DETECTED NOT DETECTED [employer] Comment [employer] Comment: The analytical performance characteristics of this assay, when used to test SurePath(TM) specimens have been determined by [employer]. The modifications have not been cleared or approved by the FDA. This assay has been validated pursuant to the CLIA regulations and is used for clinical purposes. For additional information, please refer to https://education.[employer]/faq/XXZ606 (This link is being provided for information/ educational purposes only.) Urine (Urine) 07/30/2022 10: 30 AM EDT 07/31/2022 4:31 AM EDT Narrative Resulting Agency Comment Performing Organization Information: Site ID: [id number] Name: [employer] [place] [employer] Address: [address] [place] [phone] Director: Yao Mills us Rosaline Burnette NP LAB MICROBIOLOGY - GENERAL ANSHU HAGAN Final Result [employer] from Last 3 Months or Most Recently Relevant to Health Maintenance
[2024-09-25 15:00] LABS: MANUAL DIFF FLAG NO
[2024-09-25 15:01] LABS: Hematocrit 40.5 % (37.0-47.0); Hemoglobin 12.8 g/dl (12.0-16.0); Imm Gran Abs Auto 0.02 X10*3/uL (0.00-0.03); Imm Gran Pct Auto 0.2 % (0.0-0.4); Lymphocytes Absolute Auto 2.5 X10*3/uL (1.2-4.9); Mean Corpuscular HGB Conc 31.6 g/dl (31.0-35.0); Mean Corpuscular Hemoglobin 27.4 pg (27.0-33.0); Mean Corpuscular Volume 86.5 fL (80.0-98.0); NRBC Abs Auto 0.000 X10*3/uL (0.0-0.012); NRBC Pct Auto 0.0 /100WBC (0.0-0.2); Platelet Count 305 X10*3/uL (160-400); Red Blood Count 4.68 X10*6/uL (4.20-5.50); White Blood Count 8.2 X10*3/uL (4.8-10.8)
[2024-09-25 15:33] LABS: Iron 51 mcg/dL (30-160); Percent Iron Saturation 16 % (15-50); Total Iron Binding Capacity 317 mcg/dL (228-428); Unsaturated Iron Binding 266 ug/dL
[2024-09-25 15:37] LABS: Ferritin 14 ng/mL (10-122)
[2024-09-25 15:52] LABS: Folate 10.4 ng/mL (> or = 4.0); Vitamin B12 258 pg/mL (200-900)
== END 2024-09-25 10:38 | disposition home or self-care (01) ==
LOC: HO.WFDLDS 10:37
PROVIDERS: Visit Provider Physician Assistant
DX: D64.9 Anemia, unspecified (principal)
CPT/HCPCS: 36415; 82607; 82728; 82746; 83540; 85025

== ENCOUNTER 2024-10-12 10:04 | Outpatient (AMB) | payer OTHER, SELFPAY ==
--- NOTE | 2024-10-12 10:27 | MHC.PC.OV ---
Vital Signs 10/12/24 10:31 Height 5 ft 1.61 in Weight 152 lb 2 oz BMI 28.2 BP 122/68 Blood Pressure Location Lt brachial Position Sitting Respiration 16 Pulse 97 Pulse Source Pulse Oximeter Temp 98.4 F Temp Source Oral Pulse Oximetry (%) 99 Oxygen Delivery Method Room Air Intake Visit Reasons: Lab results Intake Note: patient here for lab results [place] Worker Required: No Is last menstrual period known: Yes Last menstrual period: 10/12/24 Post menopausal: No Patient : No Allergies No Known Allergies Allergy (Verified 10/12/24 10:31) Medication List - Last Reconciled 10/12/24 by Jennifer Johnson PA-C ferrous sulfate 325 mg PO DAILY Tobacco use date assessed: 10/12/24 Dental Screening Dental Screen Date: 10/12/24 Did you have a dental visit in the last 12 months?: No Did you have a dental problem in the last 6 months where you did not have access to dental care?: No Was dental information given to patient?: Patient has dentist HPI Lab results HPI Details Patient is a 19-year-old female who presents today For a follow up. Heme: She was noted to have an iron-deficiency anemia. She states that she is taking the iron now with food and it is not causing any GI upset. Her anemia has significantly improved. She is doing well with this. Her B12 did come back low end normal. Not on any supplement. She does have regular periods lasting about a week-long with 3-4 days of heavier bleeding. Neuro: She did recently have an MRI for frequent headaches and is scheduled with Neurology to review the abnormalities on MRI and headaches. She states that since taking the iron her headaches have resolved. She goes to school right now full-time at [employer] in his in the premed program. Does not yet follow with gynecology has she is not sexually active. Fam hx: mother has t2dm, htn and father has t2dm, brother is disabled [facility] Family History (Updated 07/06/24 @ 14:32 by Carito Rivero CMA) Mother HTN (hypertension) High cholesterol Diabetes Father Diabetes Social History Housing: House Patient Tobacco Use Status: Never used Tobacco e-Cigarette/Vaping Use: Never Used Second Hand Smoke Exposure: No service: No Current occupational status: employed and student Current occupational exposures/hazards: No Cognitive needs: No Hearing needs: No Vision needs: No Female Reproductive History Menstrual Date of last menstrual period: 10/12/24 Questionnaire Thrive Questionnaire Date Thrive assessed: 07/06/24 I am a: Patient What is your living situation today?: I have a steady place to live Within the past 12 months, did the food you bought not last and you didn't have the money to get more?: Never true Within the past 12 months, did you worry whether your food would run out before you got money to buy more?: Never true Do you have trouble paying for medicines?: I choose not to answer this question Do you have trouble getting transportation to medical appointments?: No Do you have trouble paying your heating and electricity bill?: I choose not to answer this question Do you have trouble taking care of your child, family member or friend?: I choose not to answer this question Do you have trouble with day-to-day activities such as bathing, preparing meals, shopping, managing finances, etc.?: No Are you currently unemployed and looking for a job?: I choose not to answer this question Are you interested in more education?: Yes Please select the resources that you would like help with: None Currently or been in a relationship where the following occur: No concerns reported THRIVE Score: 0 SOWMYA-7 AMB Questionnaire SOWMYA-7 Date SOWMYA - 7 assessed: 07/06/24 Source: Developed by Drs. Joe Girard, Yuliana Avilez, Yann Sutton and colleagues, with an educational chen from [employer]. Physical exam (Primary Care) Vital Signs: Last Vital Signs Temp 98.4 F 10/12/24 10:31 Pulse 97 10/12/24 10:31 Resp 16 10/12/24 10:31 BP 122/68 10/12/24 10:31 Pulse Ox 99 10/12/24 10:31 Oxygen Delivery Method Room Air 10/12/24 10:31 BMI result Body Mass Index 28.2 Tobacco/Smoking Status: Tobacco use Status Tobacco use date assessed 10/12/24 10/12/24 10:34 Patient Tobacco Use Status Never used Tobacco 10/12/24 10:30 e-Cigarette/Vaping Use Never Used 10/12/24 10:30 Thrive Assessment: Date of Thrive Assessment Date Thrive assessed 07/06/24 10/12/24 10:30 Currently or been in a relationship where the following occur: No concerns reported Const Orientation/consciousness: patient oriented x3 HENMT Ears: hearing grossly normal bilaterally Neck Thyroid: Thyroid normal Lymphatic: no lymphadenopathy noted Resp Auscultation: clear to auscultation bilaterally Cardio Rate: regular rate Rhythm: regular rhythm Heart sounds: S1 normal heart sound present and S2 normal heart sound present GI Inspection: Yes normal to inspection Palpation (GI): Soft to palpation and Other GI palpation findings present (nontender, no cva tenderness) Auscultation: normoactive bowel sounds Rectal Exam - Female: deferred Skin General skin exam: no rashes or lesions noted Neuro General: patient oriented x3, gait normal, no focal motor deficits and deep tendon reflexes 2+ bilaterally Gait exam (Neuro): Normal gait present Motor exam (neuro): 5/5 motor strength present throughout Coordination: [id number]-[id number] test normal and Romberg test negative Results Reviewed Results Reviewed: Laboratory Tests 07/06/24 07/17/24 09/25/24 14:51 09:16 10:40 WBC 7.4 8.2 RBC 4.21 4.68 Hgb 10.0 L 12.8 D Hct 32.5 L 40.5 D MCV 77.2 L 86.5 MCH 23.8 L 27.4 MCHC 30.8 L 31.6 RDW 14.4 17.2 H Plt Count 366 305 Iron 23 L 51 TIBC 415 317 % Saturation 6 L 16 Unsat Iron Binding 392 266 Ferritin 3 L 14 Vitamin B12 258 Folate 10.4 Coding Level of Care Code Est Pt Level 4 (15380) Complex EM visit Add On G2211 Diagnoses New daily persistent headache G44.52 KELY (iron deficiency anemia) D50.9 B12 deficiency E53.8 Assessment & Plan Assessment & Plan (1) New daily persistent headache: Code(s): G44.52 - New daily persistent headache (NDPH) Category: Medical Plan: Resolved with iron Advised to keep appointment with Neurology for the MRI review (2) KELY (iron deficiency anemia): Code(s): D50.9 - Iron deficiency anemia, unspecified Category: Medical Plan: Advised that she can cancel her appointment with Hematology. It was initially scheduled as she was intolerant of the iron but we switch brands and it improved with taking with food. (3) B12 deficiency: Code(s): E53.8 - Deficiency of other specified B group vitamins Category: Medical Plan: We will start supplement. I will recheck labs in a few months. Orders: Orders Complete Blood Count Auto Diff Today D50.9 - Iron deficiency anemia, unspecified, E53.8 - Deficiency of other specified B group vitamins, G44.52 - New daily persistent headache (NDPH) Comprehensive [place]. Panel Fast Today D50.9 - Iron deficiency anemia, unspecified, E53.8 - Deficiency of other specified B group vitamins, G44.52 - New daily persistent headache (NDPH) Ferritin Today D50.9 - Iron deficiency anemia, unspecified, E53.8 - Deficiency of other specified B group vitamins, G44.52 - New daily persistent headache (NDPH) IRON PROFILE Today D50.9 - Iron deficiency anemia, unspecified, E53.8 - Deficiency of other specified B group vitamins, G44.52 - New daily persistent headache (NDPH) Vitamin B12 and Folate Today D50.9 - Iron deficiency anemia, unspecified, E53.8 - Deficiency of other specified B group vitamins, G44.52 - New daily persistent headache (NDPH) Medications: New cyanocobalamin (vitamin B-12) 1,000 mcg PO DAILY 90 caps 3RF cyanocobalamin (vitamin B-12) 1,000 mcg PO DAILY 90 caps 0RF
[2024-10-12 10:31] VITALS: BP 122/68; PULSE 97; RESP 16; TEMP 36.9; O2SAT 99; BMI 28.2
--- OUTSIDE RECORDS SUMMARY | 2024-10-12 11:11 | XMS_ITS | Clinical Summary ---
Author Organization [facility] Address [address] [place] [phone] Phone Care Team Providers Care Chief Talent Officer Name Role Phone Unavailable Primary Care Provider Unavailabl e Immunizations Immunization Administration Dates Next Due DTaP [...] 2023 04/18/2021, 03/28/2021 Influenza Vaccines (#1) 2024 02/25/20, 02/05/2020, 01/22/2016, Additional history exists DTaP,Tdap,and Td [...] , 09/22/2017, 06/04/2009 Procedures * Due to [place] state law, this organization might not be sharing sensitive test results. Procedure Name Priority Date/Time Associated Diagnosis Comments CHLAMYDIA TRACHOMATIS, AMPLIFIED Routine 07/30/2022 10:30 AM EDT Encounter for screening examination for sexually transmitted disease from Last 3 Months or Most Recently Relevant to Health Maintenance Results * Due to [place] state law, this organization might not be sharing sensitive test results. * Chlamydia trachomatis, Amplified (07/30/2022 10:30 AM EDT) Chlamydia trachomatis RNA, TMA NOT DETECTED NOT DETECTED [employer] [place] [employer] Comment: The analytical performance characteristics of this assay, when used to test SurePath(TM) specimens have been determined by [employer]. The modifications have not been cleared or approved by the FDA. This assay has been validated pursuant to the CLIA regulations and is used for clinical purposes. For additional information, please refer to https://education.[employer]/faq/MOY339 (This link is being provided for information/ educational purposes only.) Urine (Urine) 07/30/2022 10: 30 AM EDT 07/31/2022 4:31 AM EDT Narrative Resulting Agency Comment Performing Organization Information: Site ID: [id number] Name: [employer] Address: [address] [place] [phone] Director: Yao Mills Rosaline Burnette NP LAB MICROBIOLOGY - GENERAL ANSHU HAGAN Final Result [employer] [facility] from Last 3 Months or Most Recently Relevant to Health Maintenance
== END 2024-10-12 10:50 | disposition home or self-care (01) ==
LOC: HO.HMCFM 10:23
PROVIDERS: PCP Physician Assistant; Visit Provider Physician Assistant
DX: G44.52 New daily persistent headache (NDPH) (principal); D50.9 Iron deficiency anemia, unspecified; E53.8 Deficiency of other specified B group vitamins

== ENCOUNTER → 2024-10-12 10:04 | Outpatient (BNVA) | payer OTHER, SELFPAY | PROVIDERS: PCP Physician Assistant; Visit Provider Physician Assistant | DX: G44.52 New daily persistent headache (NDPH) (principal); D50.9 Iron deficiency anemia, unspecified; E53.8 Deficiency of other specified B group vitamins | CPT/HCPCS: 99212 ==

== ENCOUNTER → 2024-11-10 14:40 | Outpatient (BNV) | payer OTHER, SELFPAY | PROVIDERS: PCP Physician Assistant; Referring Provider Physician Assistant; Visit Provider Internal Medicine | DX: D64.9 Anemia, unspecified (principal) | CPT/HCPCS: 99203 ==

== ENCOUNTER 2025-01-24 10:05 | Outpatient (AMB) | payer OTHER, SELFPAY ==
--- NOTE | 2025-01-24 10:14 | A.OFFPC_ITS ---
Vital Signs 01/24/25 10:15 Weight 162 lb BP 102/72 Blood Pressure Location Lt brachial Position Sitting Respiration 12 Pulse 93 Pulse Source Pulse Oximeter Pulse Oximetry (%) 99 Oxygen Delivery Method Room Air Intake Visit Reasons: anemia f/u Intake Note: follow up Blade Operator Required: No Accompanied by: Mother Allergies No Known Allergies Allergy (Verified 01/24/25 10:14) Medication List - Last Reconciled 01/24/25 by Jennifer Johnson PA-C cyanocobalamin (vitamin B-12) 1,000 mcg PO DAILY ferrous sulfate 325 mg PO DAILY Tobacco use date assessed: 01/24/25 Dental Screening Dental Screen Date: 10/12/24 HPI anemia f/u HPI Details Patient is a 19-year-old female who presents today For a follow up. Heme: She was noted to have an iron-deficiency anemia. She states that she is taking the iron now with food and it is not causing any GI upset. Her anemia has significantly improved. She is doing well with this. Her B12 did come back low end normal. Currently on a supplement. Does eat a primarily vegetarian like diet. She does have regular periods lasting about a week-long with 3-4 days of heavier bleeding. Neuro: She did recently have an MRI for frequent headaches and is scheduled with Neurology to review the abnormalities on MRI and headaches. She states that since taking the iron her headaches have resolved. She goes to school right now full-time at [employer] in [facility] in the premed program. Does not yet follow with gynecology has she is not sexually active. Fam hx: mother has t2dm, htn and father has t2dm, brother is disabled Due for flu shot PFSH Family History Mother HTN (hypertension) High cholesterol Diabetes Father Diabetes Social History (Updated 11/10/24 @ 14:57 by Bozena Meraz) Household Members: Family Housing: House Patient Tobacco Use Status: Never used Tobacco e-Cigarette/Vaping Use: Never Used Second Hand Smoke Exposure: No Current occupational status: student Current occupational exposures/hazards: No Cognitive needs: No Hearing needs: No Vision needs: No Questionnaire Thrive Questionnaire Date Thrive assessed: 07/06/24 I am a: Patient What is your living situation today?: I have a steady place to live Within the past 12 months, did the food you bought not last and you didn't have the money to get more?: Never true Within the past 12 months, did you worry whether your food would run out before you got money to buy more?: Never true Do you have trouble paying for medicines?: I choose not to answer this question Do you have trouble getting transportation to medical appointments?: No Do you have trouble paying your heating and electricity bill?: I choose not to answer this question Do you have trouble taking care of your child, family member or friend?: I choose not to answer this question Do you have trouble with day-to-day activities such as bathing, preparing meals, shopping, managing finances, etc.?: No Are you currently unemployed and looking for a job?: I choose not to answer this question Are you interested in more education?: Yes Please select the resources that you would like help with: None Currently or been in a relationship where the following occur: No concerns reported THRIVE Score: 0 AUDIT C Alcohol Use Questionnaire (AUDIT-C) 1. How often do you have a drink containing alcohol?: Never 3. How often do you have six or more drinks on one occasion?: Never Total Score: 0 SOWMYA-7 AMB Questionnaire SOWMYA-7 Date SOWMYA - 7 assessed: 07/06/24 Source: Developed by Drs. Joe Girard, Yuliana Avilez, Yann Sutton and colleagues, with an educational chen from [employer]. Physical exam (Primary Care) Vital Signs: Last Vital Signs Pulse 93 01/24/25 10:15 Resp 12 01/24/25 10:15 BP 102/72 01/24/25 10:15 Pulse Ox 99 01/24/25 10:15 Oxygen Delivery Method Room Air 01/24/25 10:15 Tobacco/Smoking Status: Tobacco use Status Tobacco use date assessed 01/24/25 01/24/25 10:18 Patient Tobacco Use Status Never used Tobacco 01/24/25 10:18 e-Cigarette/Vaping Use Never Used 01/24/25 10:18 Thrive Assessment: Date of Thrive Assessment Date Thrive assessed 07/06/24 01/24/25 10:18 Currently or been in a relationship where the following occur: No concerns reported Const Orientation/consciousness: patient oriented x3 HENMT Ears: hearing grossly normal bilaterally Neck Thyroid: Thyroid normal Lymphatic: no lymphadenopathy noted Resp Auscultation: clear to auscultation bilaterally Cardio Rate: regular rate Rhythm: regular rhythm Heart sounds: S1 normal heart sound present and S2 normal heart sound present GI Inspection: Yes normal to inspection Palpation (GI): Soft to palpation and Other GI palpation findings present (nontender, no cva tenderness) Auscultation: normoactive bowel sounds Rectal Exam - Female: deferred Skin General skin exam: no rashes or lesions noted Neuro General: patient oriented x3, gait normal and no focal motor deficits Coding Level of Care Code Est Pt Level 4 (34792) Complex visit Add On G2211 Diagnoses B12 deficiency E53.8 KELY (iron deficiency anemia) D50.9 Assessment & Plan Assessment & Plan (1) B12 deficiency: Code(s): E53.8 - Deficiency of other specified B group vitamins Category: Medical (2) KELY (iron deficiency anemia): Code(s): D50.9 - Iron deficiency anemia, unspecified Category: Medical Plan She is on B12 and iron replacement. Tolerating supplements well. We will check labs today. We will follow up pending test results Flu shot today Return in 6 months for a full physical. Sooner if anything changes. Patient understands and agrees with the plan Orders: Orders Influenza [id number] Immunization Today Z23 - Encounter for immunization Medications: New Fluarix [id number] (PF) 0.5 mL IM ONCE 0.5 mL 0RF NS Z23 - Encounter for immunization Refilled cyanocobalamin (vitamin B-12) 1,000 mcg PO DAILY 90 tabs 3RF
[2025-01-24 10:15] VITALS: BP 102/72; PULSE 93; RESP 12; O2SAT 99
--- OUTSIDE RECORDS SUMMARY | 2025-01-24 11:48 | XMS_ITS | Clinical Summary ---
Author Organization [facility] Address [address] [place] [id number] Phone Care Team Providers Care Crimp Setter Name Role Phone Unavailable Primary Care Provider [...] 2-dose series) 01/29/2023 07/30/2022 Influenza Vaccines (#1) 2024 02/25/20 21, 02/05/2020, 01/22/2016, Additional history exists COVID-19 Vaccine (3 - 2024-2 6 season) 2024 04/18/2021, 03/28/2021 DTaP,Tdap,and Td Vaccines (6 - [...] , 09/22/2017, 06/04/2009 Procedures * Due to [place] state law, this organization might not be sharing sensitive test results. Procedure Name Priority Date/Time Associated Diagnosis Comments CHLAMYDIA TRACHOMATIS, AMPLIFIED Routine 07/30/2022 10:30 AM EDT Encounter for screening examination for sexually transmitted disease from Last 3 Months or Most Recently Relevant to Health Maintenance Results * Due to [place] state law, this organization might not be sharing sensitive test results. * Chlamydia trachomatis, Amplified (07/30/2022 10:30 AM EDT) Chlamydia trachomatis RNA, TMA NOT DETECTED NOT DETECTED [employer] Comment [employer] [place] [employer] Comment: The analytical performance characteristics of this assay, when used to test SurePath(TM) specimens have been determined by [employer]. The modifications have not been cleared or approved by the FDA. This assay has been validated pursuant to the CLIA regulations and is used for clinical purposes. For additional information, please refer to https://education.Fan[employer]/faq/ZYL172 (This link is being provided for information/ educational purposes only.) Urine (Urine) 07/30/2022 10: 30 AM EDT 07/31/2022 4:31 AM EDT Narrative Resulting Agency Comment Performing Organization Information: Site ID: [id number] Name: [facility] Address: [address] [place] [id number] Director: Yao Mills Rosaline Burnette NP LAB MICROBIOLOGY - GENERAL ANSHU HAGAN Final Result [facility] [employer] from Last 3 Months or Most Recently Relevant to Health Maintenance
--- OUTSIDE RECORDS SUMMARY | 2025-01-24 11:48 | XMS_ITS | Encounter Summary ---
Author Organization [facility] Address [address] [place], [place] [phone] Phone Care Team Providers Care Belt Knife Feeder Name Role Phone Barbara Ng MD Primary Care Provider Encounter Details Date Type Department Care Team (Late st Contact Info) Description 06/29/2021 Conversion Encounter [facility], [facility] [address] [place] [address] Barbara Ng MD [address] [place] [address] Social History Tobacco Use Types Packs/Day Years [...] on filedocumented in this encounter Care Teams Belt Knife Feeder Relationship Specialty Start Date End Date Barbara Ng MD [address] [place] [address] PCP - General 02/24/21 04/13/24 documented as of this encounter
== END 2025-01-24 10:34 | disposition home or self-care (01) ==
LOC: HO.HMCFM 10:06
PROVIDERS: PCP Physician Assistant; Visit Provider Physician Assistant
DX: E53.8 Deficiency of other specified B group vitamins (principal); D50.9 Iron deficiency anemia, unspecified; Z23 Encounter for immunization

== ENCOUNTER 2025-01-24 10:05 | Outpatient (REF) | payer OTHER, SELFPAY ==
[2025-01-24 14:34] LABS: MANUAL DIFF FLAG NO
[2025-01-24 14:39] LABS: Hematocrit 40.0 % (37.0-47.0); Hemoglobin 13.4 g/dl (12.0-16.0); Imm Gran Abs Auto 0.01 X10*3/uL (0.00-0.03); Imm Gran Pct Auto 0.1 % (0.0-0.4); Lymphocytes Absolute Auto 2.3 X10*3/uL (1.2-4.9); Mean Corpuscular HGB Conc 33.5 g/dl (31.0-35.0); Mean Corpuscular Hemoglobin 30.6 pg (27.0-33.0); Mean Corpuscular Volume 91.3 fL (80.0-98.0); NRBC Abs Auto 0.000 X10*3/uL (0.0-0.012); NRBC Pct Auto 0.0 /100WBC (0.0-0.2); Platelet Count 299 X10*3/uL (160-400); Red Blood Count 4.38 X10*6/uL (4.20-5.50); White Blood Count 7.9 X10*3/uL (4.8-10.8)
[2025-01-24 15:38] LABS: Folate 11.5 ng/mL (> or = 4.0); Vitamin B12 831 pg/mL (200-900)
[2025-01-24 15:42] LABS: Alanine Aminotransferase 16 U/L (0-31); Albumin Level 4.4 g/dL (3.5-5.0); Alkaline Phosphatase 53 U/L (39-117); Anion Gap 10 (12-20); Aspartate Amino Transferase 29 U/L (5-31); Blood Urea Nitrogen 8 mg/dL (9-16); Calcium 8.9 mg/dL (8.4-10.2); Carbon Dioxide 24 mmol/L (22-29); Chloride 109 mmol/L (96-108); Estimated Glomerular Filt Rate > 60; Iron 92 mcg/dL (30-160); Percent Iron Saturation 29 % (15-50); Potassium 3.7 mmol/L (3.3-5.1); Sodium 139 mmol/L (135-145); Total Iron Binding Capacity 322 mcg/dL (228-428); Total Protein 7.3 g/dL (6.5-8.0); Unsaturated Iron Binding 230 ug/dL
[2025-01-24 15:46] LABS: Ferritin 23 ng/mL (10-122)
== END 2025-01-24 10:06 | disposition home or self-care (01) ==
LOC: HO.WFDLDS 10:05
PROVIDERS: PCP Physician Assistant; Referring Provider Internal Medicine; Visit Provider Physician Assistant
DX: D50.9 Iron deficiency anemia, unspecified (principal); E53.8 Deficiency of other specified B group vitamins; G44.52 New daily persistent headache (NDPH); Z23 Encounter for immunization
CPT/HCPCS: 36415; 80053; 82607; 82728; 82746; 83540; 85025; 90471; 90656; 99212